=== PATIENT | female | born 1950 | race Caucasian/White ===

== ENCOUNTER → 2020-11-29 | Outpatient (CLI) | payer MEDICARE ==
--- NOTE | 2020-11-30 16:29 | BD ---
EXAMINATION TYPE: Axial Bone Density DATE OF EXAM: 11/29/2020 COMPARISON: NONE CLINICAL HISTORY: Height: 5 FT 1 IN Weight: 134 FRAX RISK QUESTIONS: Alcohol (3 or more units per day): NO Family History (Parent hip fracture): NO Glucocorticoids (More than 3mos): NO (Ex: prednisone, prednisolone, methylprednisolone, dexamethasone, and hydrocortisone). History of Fracture in Adulthood: YES Secondary Osteoporosis: 1. Type 1 Diabetes: NO 2. Hyperthyroidism: NO 3. Menopause before 45: TOTAL HYST AGE 22 4. Malnutrition: NO 5. Chronic liver disease: NO Rheumatoid Arthritis: NO Current Tobacco Use: NO RISK FACTORS HISTORY OF: Family History of Osteoporosis: YES Active: YES Diet low in dairy products/other sources of calcium: NO Postmenopausal woman: TOTAL HYST AGE 22 Take estrogen and/or progesterone medications: TOOK HRT FROM [age] Lost more than 2 inches in height since high school: YES MEDICATIONS: Additional Medications: ONLY SUPPLEMENTS Additional History: EXAM MEASUREMENTS: Bone mineral densitometry was performed using the [employer]. Bone mineral density as measured about the Lumbar spine is: ----- L1-L4(G/cm2): 0.960 T Score Values are as follows: ----- L2: -1.9 ----- L3: -1.9 ----- L4: -1.8 ----- L1-L4: -1.8 PREV DONE ELSEWHERE Bone mineral density about the R hip (g/cm2): 0.755 Bone mineral density about the L hip (g/cm2): 0.798 T Score values are as follows: -----R Neck: -2.0 -----L Neck: -1.7 -----R Total: -1.6 -----L Total: -1.3 PREV DONE ELSEWHERE IMPRESSION: Osteopenia (T Score between -2.5 and -1). There is slightly increased risk of fracture and the patient may be considered for treatment. Re-Screen 2-5 years. NOTE: T-SCORE=SD OF THE YOUNG ADULT MEAN.
== END | disposition home or self-care (01) ==
LOC: RADBDWWP 12:21
PROVIDERS: ATTEND Family Medicine
DX: M85.80 Other specified disorders of bone density and structure, unspecified site (principal); Z78.0 Asymptomatic menopausal state
CPT/HCPCS: 77080

== ENCOUNTER 2021-03-05 11:39 | Day surgery (SDC) | payer MEDICARE ==
[2021-03-01 11:16] VITALS: BMI 23.8
[~2021-03-05 11:39] MED LIST: SODIUM CHLORIDE 0.9% 1,000 ML IV SCH
[2021-03-05 12:14] VITALS: BP 138/76; PULSE 68; RESP 16; TEMP 99
--- NOTE | 2021-03-05 17:04 | P.EPPROC ---
- EP Procedure Note Electrophysiology Procedure Note: Diagnosis Recurrent presyncope Twelve-lead EKG shows sinus rhythm normal HI incomplete right bundle branch block pattern normal QT interval Tilt table test per protocol Baseline blood pressure 150/72 mmHg Baseline 158 beats a minute plan patient was tilted upright at an angle of 70 per protocol No change in heart rate blood pressure blood pressure remained between 120 230 mmHg No syncope Impression laid down supine at the end of the procedure The patient was dizzy while she was supine and she felt lightheaded intermittently through the procedure without any significant change in heart rate and blood pressure Impression Normal twelve-lead EKG No evidence for neurocardiogenic syncope No evidence for dysautonomia
== END 2021-03-05 14:46 | disposition home or self-care (01) ==
LOC: CATHEP 11:39
PROVIDERS: ATTEND Internal Medicine Clinical Cardiac Electrophysiology
DX: R55 Syncope and collapse (principal); I45.19 Other right bundle-branch block; I95.9 Hypotension, unspecified; I73.9 Peripheral vascular disease, unspecified; Z82.49 Family history of ischemic heart disease and other diseases of the circulatory system; Z88.0 Allergy status to penicillin; Z91.048 Other nonmedicinal substance allergy status
CPT/HCPCS: 93660

== ENCOUNTER → 2024-03-15 | Outpatient (CLI) | payer MEDICARE ==
--- NOTE | 2024-03-25 16:53 | MR ---
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 TECHNIQUE: Multi planar, multi sequence imaging was performed of the neck soft tissues. MR contrast: IV Contrast: 4.5 cc Gadavist FINDINGS: Postsurgical changes to the base of the tongue with findings compatible with reported histo ry of left glossectomy with free flap reconstruction. No definitive postcontrast enhancement visualiz ed. A few prominent vessels are noted. Susceptibility in the surgical bed noted. Several nonenlarged anterior chain lymph nodes are identified. There is no evidence to suggest a soft tissue mass. There is high T2 signal within the right mastoid air cells. The cervical vertebral bodies have preserved heights and alignment. Multilevel disc desiccation and anterior osteophytosis are present. The cervical spinal cord demonstrates a normal appearance. IMPRESSION: 1. Post left glossectomy with free flap reconstruction. No enhancing masses visualized. No lymphaden opathy visualized. 2. Multilevel degenerative disc disease with associated osteoarthritic changes. 3. Right mastoid air cell effusion.
== END | disposition home or self-care (01) ==
LOC: RADMRIMAIN 16:18
PROVIDERS: ATTEND Internal Medicine Hematology & Oncology
DX: C02.9 Malignant neoplasm of tongue, unspecified (principal); M50.30 Other cervical disc degeneration, unspecified cervical region; M25.48 Effusion, other site
CPT/HCPCS: 70543; A9585

== ENCOUNTER → 2025-03-03 | Outpatient (CLI) | payer MEDICARE ==
--- NOTE | 2025-03-03 15:54 | CT ---
EXAMINATION TYPE: CT chest wo con CT DLP: 109.9 mGycm, Automated exposure control for dose reduction was used. 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 Lack of IV or o ral contrast limits evaluation of solid and hollow organ viscera. . Coronal and sagittal reformats re viewed. FINDINGS: LUNGS/ PLEURA: No pleural effusion, pneumothorax, focal consolidation. Calcified granuloma within the superior segment of the left lower lobe. No suspicious pulmonary nodule or mass. AIRWAY: Patent and unremarkable.. HEART: Size within normal limits. . No pericardial effusion. No significant coronary artery calcifica tions. MEDIASTINUM: No gross evidence of adenopathy. VASCULATURE: No aortic aneurysm. Mild atherosclerotic calcification of the aortic arch and its branc hes. MUSCULOSKELETAL: No acute osseous abnormalities. No aggressive osseous lesion. Vertebral hemangioma i nvolving the T11 vertebral body. SOFT TISSUES/LYMPH NODES: Dystrophic calcifications within both breasts. LOWER NECK: Surgical changes with surgical clips in the left supraclavicular region. UPPER ABDOMEN: Development of a right renal 4.4 cm simple-appearing cyst. Mild to moderate left-sided hydronephrosis. IMPRESSION: 1. No CT evidence for metastatic disease within the chest within limitations of a noncontrast exam. 2. [id number] left-sided hydronephrosis demonstrated. Consider further evaluation with CT abdom en and pelvis as clinically indicated. [facility], , 03/03/2025 3:52 PM
--- NOTE | 2025-03-04 17:03 | MR ---
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 MR contrast: IV Contrast: 4.5 cc Gadobutrol FINDINGS: Postsurgical changes to the base of the tongue with findings compatible with reported history of left glossectomy with free flap reconstruction. No definitive postcontrast enhancement visualized. No pat hologically enlarged cervical lymph nodes identified. Similar scarlike soft tissue identified within the bilateral neck spaces related to dissection. There is no evidence to suggest a recurrent soft tis camelia mass. No abnormal enhancement or mass like expected course of the bilateral trigeminal nerves an d major divisions. There is high T2 signal within the right mastoid air cells again consistent with an effusion. Similar trace left mastoid effusion. Mild mucosal thickening in the inferior left maxillary sinus again. Kevin ateral aphakia. The cervical vertebral bodies have preserved heights and alignment. Multilevel disc desiccation and anterior osteophytosis are present. The cervical spinal cord demonstrates a normal appearance. Evalu ated portions of the intracranial compartment do not demonstrate any significant abnormalities. IMPRESSION: 1. Post left glossectomy with free flap reconstruction. No enhancing masses or lymphadenopathy visua lized to suggest recurrence or obvious perineural spread. 2. Redemonstration of bilateral mastoid effusions with right greater than left. [facility], , 03/04/2025 5:00 PM
== END | disposition home or self-care (01) ==
LOC: RADCTMAIN 14:32
PROVIDERS: ATTEND Otolaryngology
DX: C02.9 Malignant neoplasm of tongue, unspecified (principal); N13.30 Unspecified hydronephrosis; R49.0 Dysphonia; Z85.810 Personal history of malignant neoplasm of tongue
CPT/HCPCS: 71250; 70543; A9585

== ENCOUNTER → 2025-04-04 | Outpatient (CLI) | payer MEDICARE ==
[2025-04-04 13:27] LABS: African American GFR (CKD) >90 (>60 ml/min/1.73 sqM); Blood Urea Nitrogen 13 mg/dL (7-17); Non-African American GFR(CKD) >90 (>60 ml/min/1.73 sqM)
--- NOTE | 2025-04-04 15:10 | CT ---
CT urogram. HISTORY: Hydronephrosis. COMPARISON: None. TECHNIQUE: Multiple axial images obtained through the abdomen pelvis before and after the uneventful administration of IV contrast. FINDINGS: Lung bases are clear. There is surgical absence of the gallbladder. There is mild intrahepatic biliary ductal dilatation an d moderate to marked extrahepatic biliary ductal dilatation. There is no definite mass in the pancrea s. There are no focal masses within the liver, pancreas, spleen or adrenal glands and there is no organo megaly. The pancreas is markedly atrophic. There are multiple renal cysts, right much greater than left. There is a large 6 cm exophytic cyst of the lower pole of the right kidney. There is moderate hydronephrosis on the left. There are no filling defects within the renal collecting systems or visualized portions of the ureter s. Urinary bladder is markedly distended with urine and contrast but there are no definite intraluminal filling defects. The bowel loops are normal in caliber and there is no dilatation or obstruction. No inflammatory fam ges are identified in the bowel wall or mesentery. There is no free intraperitoneal air or fluid. There is no pelvic mass, free fluid, abscess or adenopathy. There is surgical absence of uterus. The osseous structures are intact. IMPRESSION: 1. Surgical absence of the gallbladder. Intra and extra hepatic biliary ductal dilatation is describe d above. 2. Multiple large right renal cysts and a few small left renal cyst. 3. No solid renal mass or filling defect within the renal collecting systems or ureters. 4. Moderate left hydronephrosis. Markedly distended urinary bladder. [facility], Workstation: [id number] 04/04/2025 3:07 PM
== END | disposition home or self-care (01) ==
LOC: RADCTMAIN 12:28
PROVIDERS: ATTEND Urology
DX: N13.30 Unspecified hydronephrosis (principal); N28.1 Cyst of kidney, acquired; Z90.49 Acquired absence of other specified parts of digestive tract; K83.8 Other specified diseases of biliary tract; N28.89 Other specified disorders of kidney and ureter
CPT/HCPCS: 82565; 84520; 74178; 74400; Q9967